=== PATIENT | male | born 1955 | race Two or more races ===

== ENCOUNTER 2024-03-06 12:56 | Emergency (ER) | payer OTHER ==
[~2024-03-06] VITALS: Ht 180.3 cm; Wt 116.1 kg
[~2024-03-06 12:56] MED LIST: ACID CONTROLLER10 MG PO; ACID REDUCER20 M1; ATIVAN0.5 M1 PO; ATORVASTATIN CA10 MG; CARBAMAZEPINE100 M1; CEPHALEXIN500 MG PO; ENALAPRIL M1 MG/1 ML; FENOFIBRATE50 MG; GLIMEPIRIDE1 M1; NASAL MIST126 ML NASAL; NEURAPTINE1 GM; PLAVIX75 MG
[2024-03-06 15:09] LABS: HEMATOCRIT 48.7 % (39.0-48.0); HEMOGLOBIN 16.8 g/dL (13-16.00); MEAN CELL VOLUME 87.1 fL (80.0-100.00); MEAN CORPUSCULAR HEMOGLOBIN 30.1 pg (27.00-32.0); MEAN CORPUSCULAR HGB CONC 34.6 g/dl (32.0-36.0); PLATELET COUNT 179 K/uL (150-450); RED BLOOD COUNT 5.59 M/uL (4.00-6.00); RED CELL DISTRIBUTION WIDTH 14.6 % (11.5-14.5)
[2024-03-06 15:26] LABS: CALCIUM 9.2 mg/dL (8.5-10.1); CREATININE SERUM 2.27 mg/dL (0.70-1.30); GFR 28.94; POTASSIUM 4.92 mEq/L (3.5-5.1)
[2024-03-06 15:34] LABS: PH,URINE 5.5 (5.0-8.0); URINE APPEARANCE Clear; URINE BILIRRUBIN Negative (NEGATIVE); URINE BLOOD Negative; URINE COLOR Dark Yellow; URINE KETONE Trace (NEGATIVE); URINE LEUKOCYTE Negative; URINE NITRATE Negative; URINE PROTEIN 30 (NEGATIVE)
[2024-03-06 15:35] LABS: URINE BACTERIA 31.4 uL (0.0-1933); URINE EPITHELIAL CELLS 13.9 uL (0.0-38.8); URINE RBC 8.3 uL (0.0-20.8)
[2024-03-06 15:44] LABS: URINE CAST 1.22 uL (0.0-1.40); URINE GLUCOSE >=1000 MG/DL (NEGATIVE)
== END 2024-03-06 16:16 | disposition home or self-care (01) ==
LOC: ER 12:57
PROVIDERS: General Practice
DX: R50.9 Fever, unspecified (principal); Z95.1 Presence of aortocoronary bypass graft; I20.89 Other forms of angina pectoris; I10 Essential (primary) hypertension; E11.9 Type 2 diabetes mellitus without complications; Z79.84 Long term (current) use of oral hypoglycemic drugs; Z20.822 Contact with and (suspected) exposure to COVID-19